=== PATIENT | female | born 1980 | race Caucasian/White ===

== ENCOUNTER 2024-01-26 09:29 | Emergency (ER) | payer MEDICAID ==
[~2024-01-26] VITALS: Ht 154.9 cm; Wt 88.9 kg
[2024-01-26 09:36] VITALS: BP 165/99; PULSE 86; RESP 16; TEMP 98.4; O2SAT 99
[2024-01-26] MEDS: LORazepam 1 MG TAB PO ONE (09:46)
[2024-01-26] MEDS: ACETAMINOPHEN EXTRA STRENGTH 500 MG TAB PO ONE (09:47)
[2024-01-26 10:24] VITALS: TEMP 98.1
[2024-01-26 12:24] VITALS: BP 143/94; PULSE 79; RESP 18; O2SAT 97
== END 2024-01-26 12:24 | disposition home or self-care (01) ==
LOC: MED 09:29
DX: I10 Essential (primary) hypertension (principal); E03.9 Hypothyroidism, unspecified; V89.2XXA Person injured in unspecified motor-vehicle accident, traffic, initial encounter; Y93.89 Activity, other specified; Y92.410 Unspecified street and highway as the place of occurrence of the external cause; Y99.8 Other external cause status
CPT/HCPCS: 99283